=== PATIENT | female | born 1960 | race Caucasian/White ===

== ENCOUNTER 2020-06-23 18:42 | Emergency (ER) | payer OTHER ==
[2020-06-23] MEDS ORDERED: Klor Con 10 MEQ PO ONE (19:25)
[2020-06-23] MEDS: Klor Con 10 MEQ PO ONE (19:26)
--- NOTE | 2020-06-23 20:25 | ERPHSYRPT ---
- History of Present Illness Time Seen by Provider: 06/23/20 18:50 Source: patient Exam Limitations: no limitations Patient Subjective Stated Complaint: Pt has an appt with Dr. Cooper on Monday and came to [facility] for labs to be done, pt was called by Dr. Cooper's office and was told to come to the ER due to a critical low value, this nurse looked up her labs and found her potassium to be 2.9 Triage Nursing Assessment: Pt was brought to the ER by her husbands aunt, vitals wnl, denies pain, a-fib, pulses normal, doesn't appear to be in any distress Physician History: Patient is a 60-year-old female sent to our ED by her linux devops engineer for evaluation and treatment of a potassium of 2.9. Patient was sent to have lab draw today here at [facility]. This lab draw was in anticipation of patient's follow-up appointment next Monday with her linux devops engineer. The lab resulted with a potassium of 2.9. Patient's linux devops engineer phoned our patient and told her to come to our ED for treatment of this low pot assium level. Patient asymptomatic. Vitals within normal limits. No chest pain or shortness of breath. No weakness. Patient denies nausea vomiting. No diarrhea. No loss of bodily fluids to explain the hypokalemia. Timing/Duration: other (Patient asymptomatic) Modifying Factors: Improves With: nothing Associated Symptoms: denies symptoms Allergies/Adverse Reactions: No Known Drug Allergies Allergy (Verified 06/23/20 18:56) Home Medications: Amlodipine Besylate 10 mg PO DAILY 06/23/20 [History] Atorvastatin Calcium [Lipitor] 20 mg PO DAILY 06/23/20 [History] Empagliflozin [Jardiance] 10 mg PO DAILY 06/23/20 [History] Levothyroxine Sodium 50 Mcg [Synthroid 50 Mcg] 50 mcg PO DAILY 06/23/20 [History] Losartan/Hydrochlorothiazide [Losartan-Hctz 50-12.5 mg Tab] 1 each PO DAILY 06/23/20 [History] Metoprolol Tartrate 50 mg [Lopressor 50 MG] 50 mg PO BID 06/23/20 [History] Hx Tetanus, Diphtheria Vaccination/Date Given: No Hx Influenza Vaccination/Date Given: No Hx Pneumococcal Vaccination/Date Given: No Travel Risk - International Travel Have you traveled outside of the country in past 3 weeks: No - Coronavirus Screening Are you exhibiting any of the following symptoms?: No Close contact with a COVID-19 positive Pt in past 14-21 Days: No - Review of Systems Constitutional: No Symptoms, No Fever, No Chills Eyes: No Symptoms Ears, Nose, & Throat: No Symptoms Respiratory: No Symptoms, No Cough, No Dyspnea Cardiac: No Symptoms, No Chest Pain, No Edema, No Syncope Abdominal/Gastrointestinal: No Symptoms, No Abdominal Pain, No Nausea, No Vomiting, No Diarrhea Genitourinary Symptoms: No Symptoms, No Dysuria Musculoskeletal: No Symptoms, No Back Pain, No Neck Pain Skin: No Symptoms, No Rash Neurological: No Symptoms, No Dizziness, No Focal Weakness, No Sensory Changes Psychological: No Symptoms Endocrine: No Symptoms Hematologic/Lymphatic: No Symptoms Immunological/Allergic: No Symptoms All Other Systems: Reviewed and Negative - Past Medical History Pertinent Past Medical History: Yes Cardiac History: High Cholesterol, Hypertension, Myocardial Infarction ([place]) Respiratory History: COPD History: Renal Disease Psycho-Social History: Anxiety - Past Surgical History Past Surgical History: Yes Cardiac: Cardiac Catheterization, Cardiac Stent Other Surgical History: CERVICAL FUSION - Social History Smoking Status: Current every day smoker Exposure to second hand smoke: No Drug Use: none Patient Lives Alone: No - Female History Hx Now: No - Nursing Vital Signs Nursing Vital Signs: Initial Vital Signs Temperature 98.0 F 06/23/20 18:46 Pulse Rate 63 06/23/20 18:46 Respiratory Rate 12 06/23/20 18:46 Blood Pressure 143/79 06/23/20 18:46 O2 Sat by Pulse Oximetry 100 06/23/20 18:46 Pain Scale Pain Intensity 0 - Physical Exam General Appearance: no apparent distress, alert Eye Exam: PERRL/EOMI, eyes nml inspection Ears, Nose, Throat Exam: normal ENT inspection, TMs normal, pharynx normal, moist mucous membranes Neck Exam: normal inspection, non-tender, supple, full range of motion Respiratory Exam: normal breath sounds, lungs clear, No respiratory distress Cardiovascular Exam: regular rate/rhythm, normal heart sounds, normal peripheral pulses Gastrointestinal/Abdomen Exam: soft, normal bowel sounds, No tenderness, No mass Back Exam: normal inspection, normal range of motion, No CVA tenderness, No vertebral tenderness Extremity Exam: normal inspection, normal range of motion, pelvis stable Neurologic Exam: alert, oriented x 3, cooperative, normal mood/affect, nml cerebellar function, nml station & gait, sensation nml, No motor deficits Skin Exam: normal color, warm, dry, No rash Lymphatic Exam: No adenopathy SpO2 Interpretation: normal SpO2: 100 O2 Delivery: Room Air - Course Nursing assessment & vital signs reviewed: Yes Ordered Tests: Active Orders 24 hr Category Date Time Status BMP Stat Lab 06/23/20 21:25 Completed CBC W DIFF Stat Lab 06/23/20 21:25 Completed MAGNESIUM Stat Lab 06/23/20 21:25 Completed Medication Summary Discontinued Medications Generic Name Dose Route Start Last Admin Trade Name Freq PRN Reason Stop Dose Admin Potassium Chloride 40 meq 06/23/20 19:15 06/23/20 19:26 Klor Con 10 Meq PO 06/23/20 19:16 40 meq STAT ONE Administration Potassium Chloride Confirm 06/23/20 19:25 Klor Con 10 Meq Administered 06/23/20 19:26 Dose 40 meq PO .STK-MED ONE Lab/Rad Data: Laboratory Result Diagrams 06/23/20 21:25 06/23/20 21:25 Laboratory Results 06/23/20 06/23/20 06/23/20 Range/Units 21:25 21:25 21:25 WBC 7.1 (4.0-10.5) K/mm3 RBC 4.85 (4.1-5.4) M/mm3 Hgb 15.0 (12.0-16.0) gm/dl Hct 44.4 (35-47) % MCV 91.5 (78-100) fl MCH 30.9 (26-32) pg MCHC 33.8 (32-36) g/dl RDW 12.3 (11.5-14.0) % Plt Count 354 (150-450) K/mm3 MPV 10.8 (7.5-11.0) fl Gran % 61.4 (36.0-66.0) % Eos # (Auto) 0.10 (0-0.5) Absolute Lymphs (auto) 1.94 (1.0-4.6) Absolute Monos (auto) 0.69 (0.0-1.3) Lymphocytes % 27.2 (24.0-44.0) % Monocytes % 9.7 (0.0-12.0) % Eosinophils % 1.4 (0.00-5.0) % Basophils % 0.3 (0.0-0.4) % Absolute Granulocytes 4.39 (1.4-6.9) Basophils # 0.02 (0-0.4) Sodium 134 L (137-145) mmol/L Potassium 3.8 D (3.5-5.1) mmol/L Chloride 100 (98-107) mmol/L Carbon Dioxide 26 (22-30) mmol/L Anion Gap 11.2 (5-15) MEQ/L BUN 30 H (7-17) mg/dL Creatinine 1.04 (0.52-1.04) mg/dL Estimated GFR 57.6 ML/MIN Glucose 105 (74-106) mg/dL Calcium 10.3 H (8.4-10.2) mg/dL Magnesium 2.1 (1.6-2.3) mg/dL - Progress Progress: improved Progress Note: 06/23/20 22:02 Patient reassessed. She remains asymptomatic. Potassium increased from 2.9-3.8 with 40 mEq potassium p.o. Will discharge home. Patient voices no other complaints or concerns at this time. Patient will follow up with her linux devops engineer on Monday as scheduled. Counseled pt/family regarding: lab results, diagnosis, need for follow-up - Departure Departure Disposition: Home Clinical Impression: Hypokalemia Condition: Stable Critical Care Time: No Referrals: CARLOS CARDENAS MD [Primary Care Provider] - Additional Instructions: Discharge/Care Plan DANNY WORLEY was seen on 06/23/20 in the Emergency Room. The patient was counseled regarding Diagnosis,Lab results, Imaging studies, need for follow up and when to return to the Emergency Room. Prescriptions given: Discharge Note I have spoken with the patient and/or caregivers. I have explained the patient's condition, diagnosis and treatment plan based on the information available to me at this time. I have answered the patient's and/or caregiver's questions and addressed any concerns. The patient and/or caregivers have as good understanding of the patient's diagnosis, condition and treatment plan as can be expected at this point. The vital signs have been stable. The patient's condition is stable and appropriate for discharge from the emergency department. The patient will pursue further outpatient evaluation with the primary care physician or other designated or consulting physician as outlined in the discharge instructions. The patient and/or caregivers are agreeable to this plan of care and follow-up instructions have been explained in detail. The patient and/or caregivers have received these instruction. The patient/and or caregivers are aware that any significant change in condition or worsening of symptoms should prompt an immediate return to this or the closest emergency department or call 911.
[2020-06-23 21:34] LABS: Absolute Neutrophil Ct (ANC) 4.39 (1.4-6.9); BASOPHIL % 0.3 % (0.0-0.4); Basophil (Absolute #) 0.02 (0-0.4); Eosinophil % 1.4 % (0.00-5.0); Hematocrit 44.4 % (35-47); Lymphocyte (Absolute #) 1.94 (1.0-4.6); Lymphocytes % 27.2 % (24.0-44.0); Mean Cell Volume 91.5 fl (78-100); Mean Corpuscular Hemoglobin 30.9 pg (26-32); Mean Corpuscular Hgb Concent. 33.8 g/dl (32-36); Mean Platelet Volume 10.8 fl (7.5-11.0); Monocyte (Absolute #) 0.69 (0.0-1.3); Monocytes % 9.7 % (0.0-12.0); Neutrophil % 61.4 % (36.0-66.0); Platelet Count 354 K/mm3 (150-450); Red Blood Count 4.85 M/mm3 (4.1-5.4); Red Cell Distribution Width 12.3 % (11.5-14.0); White Blood Count 7.1 K/mm3 (4.0-10.5)
[2020-06-23 21:48] LABS: ANION GAP 11.2 MEQ/L (5-15); Calcium 10.3 mg/dL (8.4-10.2); Creatinine 1 1.04 mg/dL (0.52-1.04); EST GLOMERULAR FILTRATION RATE 57.6 ML/MIN
[2020-06-23 21:55] LABS: Potassium 3.8 mmol/L (3.5-5.1)
[2020-06-23 22:10] VITALS: BP 125/69; PULSE 68; O2SAT 96
== END 2020-06-23 22:10 | disposition home or self-care (01) ==
LOC: ED 18:42
DX: R79.89 Other specified abnormal findings of blood chemistry (principal); E87.6 Hypokalemia; I48.91 Unspecified atrial fibrillation; E78.5 Hyperlipidemia, unspecified; I10 Essential (primary) hypertension; I25.2 Old myocardial infarction; F17.200 Nicotine dependence, unspecified, uncomplicated; Z79.899 Other long term (current) drug therapy
CPT/HCPCS: 36415; 80048; 80053; 81001; 82043; 82306; 83735; 83970; 85025; 85027; 99283; A9270-GY

== ENCOUNTER 2022-02-23 06:39 | Day surgery (SDC) | payer OTHER ==
--- NOTE | 2022-02-23 10:56 | XRAY ---
11 seconds of fluoroscopy was used in surgery for an attempted left C2-C4 MBB. The exam was aborted.
[2022-02-23] MEDS ORDERED: Lactated Ringers 1,000 ML IV ONE (12:38)
== END 2022-02-23 09:20 | disposition home or self-care (01) ==
LOC: SDC-PAIN 06:39
PROVIDERS: ATTEND Psychiatry & Neurology Pain Medicine
DX: M47.812 Spondylosis without myelopathy or radiculopathy, cervical region (principal); E11.9 Type 2 diabetes mellitus without complications; Z79.899 Other long term (current) drug therapy
CPT/HCPCS: 64490; 77002; 82947